=== PATIENT | male | born 1955 | race Caucasian/White ===

== ENCOUNTER 2020-02-26 20:00 | Inpatient (IN) | payer BC, OTHER ==
[~2020-02-26] VITALS: Ht 177.8 cm; Wt 105.0 kg
[~2020-02-26 20:00] MED LIST: heparin 1,000 units/ml 10ml inj ONE; papaverine 30 mg/ml 2ml inj. ONE
--- NOTE | 2020-02-26 20:10 | NUR ---
Xray at bedside for port cxr
[2020-02-26 20:29] LABS: BASOPHILS # (AUTO) 0.1 X10'3 (0-0.2); BASOPHILS % (AUTO) 0.5 % (0-1); EOSINOPHILS % (AUTO) 0.1 % (0-6); HEMATOCRIT 38.4 % (42.0-52.0); HEMOGLOBIN 12.7 g/dl (14.0-17.9); LYMPHOCYTES # (AUTO) 0.9 X10'3 (1.1-4.8); LYMPHOCYTES % (AUTO) 7.4 % (21-51); MEAN CORPUSCULAR HEMOGLOBIN 29.9 PG (27.0-31.0); MEAN CORPUSCULAR HGB CONC 33.1 g/dL (33.0-36.5); MEAN CORPUSCULAR VOLUME 90.3 FL (78-98); MEAN PLATELET VOLUME 10.2 FL (7.4-10.4); MONOCYTES # (AUTO) 0.7 X10'3 (0-0.9); MONOCYTES % (AUTO) 5.8 % (2-12); NEUTROPHILS % (AUTO) 86.2 % (42-75); PLATELET COUNT 248 X10'3 (140-440); RED BLOOD COUNT 4.26 X10'6 (4.70-6.10); RED CELL DISTRIBUTION WIDTH 14.1 % (11.5-14.5); WHITE BLOOD COUNT 11.6 X10'3 (4.5-11.0)
[2020-02-26 20:38] LABS: PARTIAL THROMBOPLASTIN TIME 37 SECONDS (22-32)
[2020-02-26 20:42] LABS: ALANINE AMINOTRANSFERASE 32 U/L (12-78); ALBUMIN 3.5 G/DL (3.4-5.0); ALBUMIN/GLOBULIN RATIO 0.9 (1.1-1.5); ALKALINE PHOSPHATASE 68 IU/L (46-116); ANION GAP 13 (8-16); ASPARTATE AMINO TRANSFERASE 21 U/L (10-37); BILIRUBIN,TOTAL 0.6 MG/DL (0.1-1.0); BLOOD UREA NITROGEN 43 MG/DL (7-18); BUN/CREATININE RATIO 30.9 (5.4-32.0); CHLORIDE 106 MMOL/L (99-107); CREATININE 1.39 MG/DL (0.60-1.10); GLUCOSE 261 MG/DL (70-104); POTASSIUM 4.7 MMOL/L (3.5-5.1); SODIUM 143 MMOL/L (135-145); TOTAL CARBON DIOXIDE 24.4 MMOL/L (24-32); TOTAL PROTEIN 7.6 G/DL (6.4-8.2); eGFR 51 ML/MIN
[2020-02-26 20:51] LABS: MAGNESIUM 2.1 MG/DL (1.5-2.4)
[2020-02-26] MEDS: heparin 25,000 UNIT/250ml bag 250 ML IV SCH (21:04)
--- NOTE | 2020-02-26 21:11 | NUR ---
Pt given urinal as requested.
--- NOTE | 2020-02-26 21:44 | NUR ---
Pt placed on hospital bed for comfort. Call light in reach, water and urinal at bedside. Lights dimmed.
[2020-02-26] MEDS ORDERED: furosemide 10 MG/1 ML 10ml inj IV ONE (21:55)
[2020-02-26] MEDS ORDERED: INSU100I29 SQ (22:04)
[2020-02-26] MEDS ORDERED: DAPA10TA PO (22:04)
[2020-02-26] MEDS ORDERED: ATOR20TA66 PO (22:05)
[2020-02-26] MEDS ORDERED: FENO145T38 PO (22:05)
[2020-02-26] MEDS ORDERED: METF500T PO (22:06)
[2020-02-26] MEDS ORDERED: LISI-600 PO (22:06)
[2020-02-26] MEDS ORDERED: ASPI-1265 PO (22:07)
[2020-02-26] MEDS ORDERED: ondansetron/PF 4mg/2ml inj IV PRN (22:25)
[2020-02-26] MEDS ORDERED: acetaminophen 325mg tablet PO PRN (22:25)
[2020-02-26] MEDS ORDERED: potassium Cl 20 mEq SR tablet PO PRN ×2 (22:25)
[2020-02-26] MEDS ORDERED: mag hydrox/Alum hydrox/simeth 30ml oral suspension PO PRN (22:25)
[2020-02-26] MEDS ORDERED: magnesium hydroxide 30ml (MOM) UD suspension PO PRN (22:25)
[2020-02-26] MEDS ORDERED: morphine 2 MG/ML inj. syringe IV PRN ×2 (22:25)
[2020-02-26] MEDS ORDERED: potassium CL 10mEq/100ml bag 100 ML IV PRN ×2 (22:25)
[2020-02-26] MEDS ORDERED: MESSAGE TO PHARMACY PO ONE (22:30)
[2020-02-26] MEDS ORDERED: dextrose 50%-water 50ml dispensing syringe IV PRN ×2 (22:30)
[2020-02-26] MEDS ORDERED: glucagon, human recombinant 1mg kit SUBCUT PRN (22:30)
[2020-02-26] MEDS ORDERED: dextrose ORAL solution 15 GM/59 ML bottle PO PRN ×2 (22:30)
[2020-02-26 22:58] LABS: HEMOGLOBIN A1C 8.7 % (4.5-6.2)
[2020-02-27 02:12] LABS: BASOPHILS # (AUTO) 0.1 X10'3 (0-0.2); BASOPHILS % (AUTO) 0.9 % (0-1); EOSINOPHILS % (AUTO) 0.1 % (0-6); HEMATOCRIT 35.8 % (42.0-52.0); LYMPHOCYTES # (AUTO) 1.6 X10'3 (1.1-4.8); LYMPHOCYTES % (AUTO) 13.5 % (21-51); MEAN CORPUSCULAR HEMOGLOBIN 30.5 PG (27.0-31.0); MEAN CORPUSCULAR HGB CONC 33.5 g/dL (33.0-36.5); MEAN PLATELET VOLUME 10.1 FL (7.4-10.4); MONOCYTES % (AUTO) 8.5 % (2-12); PLATELET COUNT 232 X10'3 (140-440); RED BLOOD COUNT 3.93 X10'6 (4.70-6.10); RED CELL DISTRIBUTION WIDTH 13.9 % (11.5-14.5); WHITE BLOOD COUNT 11.7 X10'3 (4.5-11.0)
[2020-02-27 02:23] LABS: ALANINE AMINOTRANSFERASE 30 U/L (12-78); ALBUMIN 3.3 G/DL (3.4-5.0); ALBUMIN/GLOBULIN RATIO 0.7 (1.1-1.5); ALKALINE PHOSPHATASE 62 IU/L (46-116); ANION GAP 10 (8-16); ASPARTATE AMINO TRANSFERASE 22 U/L (10-37); BILIRUBIN,TOTAL 0.6 MG/DL (0.1-1.0); BLOOD UREA NITROGEN 42 MG/DL (7-18); BUN/CREATININE RATIO 30.2 (5.4-32.0); CALCIUM 8.3 MG/DL (8.5-10.1); CHLORIDE 105 MMOL/L (99-107); CREATININE 1.39 MG/DL (0.60-1.10); GLUCOSE 232 MG/DL (70-104); SODIUM 140 MMOL/L (135-145); TOTAL CARBON DIOXIDE 25.5 MMOL/L (24-32); TOTAL PROTEIN 7.9 G/DL (6.4-8.2); eGFR 51 ML/MIN
[2020-02-27 02:26] LABS: CHOL/HDL RATIO 2.3 (0.00-4.99); CHOLESTEROL 101 MG/DL (0-200); HDL CHOLESTEROL 44 MG/DL (35-60); LDL CHOLESTEROL 40 MG/DL (50-100); TRIGLYCERIDES 135 MG/DL (20-135)
[2020-02-27] MEDS: K and/or MAG REPLACEMENT MC SCH ×2 (08:00→20:00)
[2020-02-27] MEDS: fenofibrate 145mg tablet PO SCH (08:53)
[2020-02-27] MEDS: atorvastatin 20mg tablet PO SCH (08:54)
[2020-02-27] MEDS: lisinopril 20mg tablet PO SCH (08:54)
[2020-02-27] MEDS: aspirin 81mg tab.chew PO SCH (08:55)
--- NOTE | 2020-02-27 13:14 | NUR ---
pt complaining of chest discomfort and pain will notify hospitalist and continue to monitor
--- NOTE | 2020-02-27 13:28 | NUR ---
ekg done and hospitalist paged for further treatment orders
[2020-02-27] MEDS: heparin 10,000 units/1 ML INJ IV PRN ×2 (15:27→22:35)
[2020-02-27] MEDS: heparin 25,000 UNIT/250ml bag 250 ML IV SCH ×2 (15:28→18:41)
[2020-02-27 15:30] VITALS: BP 105/62
[2020-02-27 18:00] VITALS: BP 107/66
--- NOTE | 2020-02-27 18:24 | NUR ---
Patient in room PCU 3016. I have received report from Tamy GLORIA and had the opportunity to ask questions and assume patient care.
--- NOTE | 2020-02-27 18:25 | NUR ---
Problems reprioritized. Patient report given, questions answered & plan of care reviewed with Otto RN & Noelle RN.
--- NOTE | 2020-02-27 19:30 | NUR ---
Unable to count carbs Pt received late tray, no slip available. Pt reports 75% consumption.
[2020-02-27 22:00] VITALS: BP 101/58
[2020-02-27] MEDS: insulin glargine (Lantus) pen - multi-dose SQ SCH (22:24)
[2020-02-27] MEDS: insulin Lispro (HumaLOG) vial - multi-dose SQ SCH (22:26)
[2020-02-28] VITALS (13 sets, daily range): BP systolic 63–103; BP diastolic 44–64
--- NOTE | 2020-02-28 02:49 | NUR ---
Pt does not want to answer Dart questions at this time, will try again later.
[2020-02-28 05:11] LABS: BASOPHILS # (AUTO) 0.1 X10'3 (0-0.2); BASOPHILS % (AUTO) 0.7 % (0-1); EOSINOPHILS # (AUTO) 0.1 X10'3 (0-0.9); EOSINOPHILS % (AUTO) 1.1 % (0-6); HEMATOCRIT 36.2 % (42.0-52.0); LYMPHOCYTES # (AUTO) 1.6 X10'3 (1.1-4.8); MEAN CORPUSCULAR HGB CONC 33.2 g/dL (33.0-36.5); MEAN CORPUSCULAR VOLUME 90.4 FL (78-98); MEAN PLATELET VOLUME 10.2 FL (7.4-10.4); MONOCYTES # (AUTO) 0.6 X10'3 (0-0.9); NEUTROPHILS # (AUTO) 5.5 X10'3 (1.8-7.7); NEUTROPHILS % (AUTO) 70.2 % (42-75); PLATELET COUNT 229 X10'3 (140-440); RED CELL DISTRIBUTION WIDTH 13.7 % (11.5-14.5); WHITE BLOOD COUNT 7.9 X10'3 (4.5-11.0)
[2020-02-28 05:24] LABS: ALANINE AMINOTRANSFERASE 24 U/L (12-78); ALBUMIN/GLOBULIN RATIO 0.8 (1.1-1.5); ALKALINE PHOSPHATASE 59 IU/L (46-116); ANION GAP 12 (8-16); ASPARTATE AMINO TRANSFERASE 13 U/L (10-37); BILIRUBIN,TOTAL 0.7 MG/DL (0.1-1.0); BLOOD UREA NITROGEN 37 MG/DL (7-18); BUN/CREATININE RATIO 36.3 (5.4-32.0); CALCIUM 8.7 MG/DL (8.5-10.1); CHLORIDE 102 MMOL/L (99-107); CREATININE 1.02 MG/DL (0.60-1.10); GLUCOSE 173 MG/DL (70-104); POTASSIUM 3.7 MMOL/L (3.5-5.1); SODIUM 139 MMOL/L (135-145); TOTAL CARBON DIOXIDE 25.5 MMOL/L (24-32); TOTAL PROTEIN 6.8 G/DL (6.4-8.2); eGFR 74 ML/MIN
[2020-02-28] MEDS: heparin 10,000 units/1 ML INJ IV PRN (05:31)
--- NOTE | 2020-02-28 06:28 | NUR ---
Problems reprioritized. Patient report given, questions answered & plan of care reviewed with Farnaz GLORIA.
--- NOTE | 2020-02-28 06:29 | NUR ---
I have reviewed Carly GLORIA charting and I agree.
--- NOTE | 2020-02-28 06:35 | NUR ---
Patient in room PCU 3019. I have received report from [facility] RN and had the opportunity to ask questions and assume patient care. PT AWAKE AND WATCHING TV. WHAT TO EXPECT TODAY IN [employer] DISCUSSED. POC EXPLAINED IN DETAIL. PT NO DISTRES. DENIES NEEDS. Addendum: 02/28/20 at 0857 by Sita Marquez RN Amended: Links added.
[2020-02-28] MEDS: lisinopril 20mg tablet PO SCH (07:37)
[2020-02-28] MEDS: atorvastatin 20mg tablet PO SCH (07:38)
[2020-02-28] MEDS: fenofibrate 145mg tablet PO SCH (07:38)
[2020-02-28] MEDS: K and/or MAG REPLACEMENT MC SCH ×2 (08:00→20:00)
[2020-02-28] MEDS: aspirin 81mg tab.chew PO SCH (08:00)
[2020-02-28] MEDS ORDERED: pneumococcal 23-VAL P-sac vacc 25 mcg/0.5ml vial IMVAC ONE (10:00)
[2020-02-28] MEDS ORDERED: FLU VACC QS2020-21(6MOS UP)/PF 60 MCG/0.5 ML SYRINGE IMVAC ONE (10:00)
[2020-02-28] MEDS ORDERED: LIDOcaine/PRILOcaine 5gm cream TP ONE (10:50)
[2020-02-28] MEDS ORDERED: fentaNYL/PF 50MCG/1 ML 2ML syringe ONE (10:51)
[2020-02-28] MEDS ORDERED: midazolam 2 mg/2 ml injection ONE ×2 (10:51→11:34)
[2020-02-28] MEDS ORDERED: LIDOcaine 1% (10mg/ml)w/preservative injection 20ml MDV ONE (10:52)
[2020-02-28] MEDS ORDERED: iohexol 350MG/ML 100ml bottle IV ONE (10:52)
--- NOTE | 2020-02-28 10:59 | NUR ---
PT DOWN TO DRUG PURCHASER.
[2020-02-28] MEDS ORDERED: nitroGLYCERIN-Tridil 50MG/D5W 250 ML IV ONE (11:24)
[2020-02-28] MEDS ORDERED: heparin 1,000unit/ml 10ml vial 10 ML ONE (11:24)
[2020-02-28] MEDS ORDERED: verapamil 2.5 mg/ml inj IV ONE (11:24)
--- NOTE | 2020-02-28 12:18 | NUR ---
PT BACK TO ROOM. RADIAL PRESSURE DEVICE IN PLACE. RIGHT HAND HAS NO SWELLING, NO BRUISING, NO REDNESS. PT TALKING ON PHONE. Addendum: 02/28/20 at 1239 by Sita Marquez RN Amended: Links added.
[2020-02-28] MEDS ORDERED: HYDROcodone/acetaminophen 10/325mg tab PO PRN (12:25)
[2020-02-28] MEDS ORDERED: normal saline 1000ml 1,000 ML IV SCH (12:25)
[2020-02-28] MEDS ORDERED: OXAZEpam 15mg capsule PO PRN (12:25)
[2020-02-28] MEDS ORDERED: nitroGLYCERIN 0.4mg SUBLingual tab SL PRN (12:25)
[2020-02-28] MEDS ORDERED: HYDROcodone/acetaminophen 5mg/325mg tablet PO PRN (12:25)
[2020-02-28] MEDS ORDERED: proCHLORperazine 10 MG/2 ml inj IV PRN (12:25)
[2020-02-28] MEDS ORDERED: ondansetron/PF 4mg/2ml inj IV PRN (12:25)
--- NOTE | 2020-02-28 13:08 | NUR ---
3ML OF AIR REMOVED FROM RADIAL PRESSURE DEVICE. NO BLEEDING. HAND PINK AND WARM WITHOUT PAIN.
--- NOTE | 2020-02-28 14:10 | NUR ---
RADIAL PRESSURE BAND REMOVED PER PROTOCOL. PT TALKING ON PHONE WITH FAMILY. HAND PINK AND WARM. NO BLEEDING FROM SITE. V/S WNL. PT NO DISTRESS. CALL LIGHT IN REACH.
--- NOTE | 2020-02-28 15:42 | NUR ---
DM education, Hgb a1c 8.7%; met at bedside and given written DM education handout with verbal review. Addendum: 02/28/20 at [address] Amended: Links added.
--- NOTE | 2020-02-28 18:12 | NUR ---
Problems reprioritized. Patient report given, questions answered & plan of care reviewed with CARLA RN. PT RELAXING ,EATING DINNER.PT DENIES NEEDS. CALL LIGHT IN REACH. RADIAL CATH SITE CLEAR.
--- NOTE | 2020-02-28 18:25 | NUR ---
Patient in room PCU 3019. I have received report from Sita GLORIA and had the opportunity to ask questions and assume patient care.
[2020-02-28] MEDS: insulin Lispro (HumaLOG) vial - multi-dose SQ SCH (19:28)
[2020-02-28] MEDS: metFORMIN 500mg tablet PO SCH (19:33)
[2020-02-28] MEDS: insulin glargine (Lantus) pen - multi-dose SQ SCH (21:40)
[2020-02-29 03:00] VITALS: BP 99/51
[2020-02-29 06:00] VITALS: BP 99/58
--- NOTE | 2020-02-29 06:15 | NUR ---
Patient in room PCU 3019. I have received report from Olman GLORIA and had the opportunity to ask questions and assume patient care.
--- NOTE | 2020-02-29 06:17 | NUR ---
Problems reprioritized. Patient report given, questions answered & plan of care reviewed with Edouard GLORIA.
[2020-02-29] MEDS: K and/or MAG REPLACEMENT MC SCH ×2 (08:00→20:00)
[2020-02-29] MEDS: DAPAGLIFLOZIN 10MG TABLET PO SCH (08:00)
[2020-02-29 08:04] LABS: ALANINE AMINOTRANSFERASE 25 U/L (12-78); ALBUMIN 2.9 G/DL (3.4-5.0); ALBUMIN/GLOBULIN RATIO 0.8 (1.1-1.5); ALKALINE PHOSPHATASE 57 IU/L (46-116); ANION GAP 6 (8-16); ASPARTATE AMINO TRANSFERASE 16 U/L (10-37); BILIRUBIN,TOTAL 0.6 MG/DL (0.1-1.0); BLOOD UREA NITROGEN 24 MG/DL (7-18); BUN/CREATININE RATIO 28.2 (5.4-32.0); CALCIUM 9.1 MG/DL (8.5-10.1); CHLORIDE 107 MMOL/L (99-107); CREATININE 0.85 MG/DL (0.60-1.10); GLUCOSE 130 MG/DL (70-104); SODIUM 138 MMOL/L (135-145); TOTAL CARBON DIOXIDE 25.1 MMOL/L (24-32); TOTAL PROTEIN 6.7 G/DL (6.4-8.2); eGFR > 90 ML/MIN
[2020-02-29] MEDS ORDERED: MESSAGE TO NURSING PO ONE ×5 (08:05→10:00)
[2020-02-29] MEDS ORDERED: MALTODEXTRIN/FRUCTOSE 0.68 KCAL/ML LIQUID 296ML BOTTLE PO ONE (08:05)
[2020-02-29 08:16] LABS: BASOPHILS % (AUTO) 0.5 % (0-1); EOSINOPHILS # (AUTO) 0.2 X10'3 (0-0.9); EOSINOPHILS % (AUTO) 3.8 % (0-6); HEMATOCRIT 36.3 % (42.0-52.0); HEMOGLOBIN 12.5 g/dl (14.0-17.9); LYMPHOCYTES # (AUTO) 1.2 X10'3 (1.1-4.8); LYMPHOCYTES % (AUTO) 18.2 % (21-51); MEAN CORPUSCULAR HEMOGLOBIN 31.1 PG (27.0-31.0); MEAN CORPUSCULAR HGB CONC 34.4 g/dL (33.0-36.5); MEAN CORPUSCULAR VOLUME 90.5 FL (78-98); MEAN PLATELET VOLUME 9.9 FL (7.4-10.4); MONOCYTES # (AUTO) 0.6 X10'3 (0-0.9); MONOCYTES % (AUTO) 8.7 % (2-12); NEUTROPHILS # (AUTO) 4.5 X10'3 (1.8-7.7); NEUTROPHILS % (AUTO) 68.8 % (42-75); PLATELET COUNT 231 X10'3 (140-440); RED BLOOD COUNT 4.01 X10'6 (4.70-6.10); RED CELL DISTRIBUTION WIDTH 13.5 % (11.5-14.5); WHITE BLOOD COUNT 6.5 X10'3 (4.5-11.0)
[2020-02-29] MEDS: aspirin 81mg tab.chew PO SCH (09:15)
[2020-02-29] MEDS: metFORMIN 500mg tablet PO SCH ×2 (09:15→17:34)
[2020-02-29] MEDS: fenofibrate 145mg tablet PO SCH (09:16)
[2020-02-29] MEDS: atorvastatin 20mg tablet PO SCH (09:16)
[2020-02-29] MEDS: lisinopril 20mg tablet PO SCH (09:18)
[2020-02-29 09:23] LABS: PARTIAL THROMBOPLASTIN TIME 26 SECONDS (22-32)
--- NOTE | 2020-02-29 12:00 | NUR ---
Problems reprioritized. Patient report given, questions answered & plan of care reviewed with Karmen LEDESMA.
[2020-02-29] MEDS: metoprolol tartrate 12.5mg (1/2 tablet) PO SCH ×2 (12:05→20:41)
--- NOTE | 2020-02-29 12:35 | NUR ---
Pt belongings gathered and sent with Pt. tele-box removed and returned to [employer]. Pt wheeled over to [facility]E unit room 314 by RN. Pt's vitals WNL.
[2020-02-29] MEDS: insulin Lispro (HumaLOG) vial - multi-dose SQ SCH ×2 (12:57→19:20)
--- NOTE | 2020-02-29 14:04 | NUR ---
vascular paged: [phone] dotty - CAROTIDS/ VEIN MAPPING ORDERED PRE-OP CABG
[2020-02-29 15:00] VITALS: BP 95/60
--- NOTE | 2020-02-29 17:05 | NUR ---
PAGER ID: [phone] MESSAGE: [phone]: LAUREEN RUGGIERO wrote in admit note to hold metformin, pt on insulin protocol, can we hold metformin? needs to be d/c'd before CABG anyways. ty Ila [id number]
[2020-02-29 18:00] VITALS: BP 105/61
--- NOTE | 2020-02-29 18:00 | NUR ---
Patient in room MED 314. I have received report from Karmen GLORIA and had the opportunity to ask questions and assume patient care.
[2020-02-29] MEDS ORDERED: mupirocin 2% ointment 22GM NS SCH (20:00)
[2020-02-29] MEDS: insulin glargine (Lantus) pen - multi-dose SQ SCH ×2 (21:40→22:13)
[2020-02-29 22:00] VITALS: BP 110/62
[2020-03-01] VITALS (8 sets, daily range): BP systolic 96–112; BP diastolic 46–68
--- NOTE | 2020-03-01 06:35 | NUR ---
REPORT GIVEN TO BERTHA GLORIA. PATIENT TRANSFERRED TO [facility] VIA W/C. ALL BELONGINGS WITH PATIENT ON D/C.
[2020-03-01] MEDS: metFORMIN 500mg tablet PO SCH ×2 (07:26→19:06)
[2020-03-01 07:29] LABS: BASOPHILS % (AUTO) 0.6 % (0-1); EOSINOPHILS # (AUTO) 0.4 X10'3 (0-0.9); EOSINOPHILS % (AUTO) 6.2 % (0-6); HEMATOCRIT 38.4 % (42.0-52.0); HEMOGLOBIN 13.2 g/dl (14.0-17.9); LYMPHOCYTES % (AUTO) 16.6 % (21-51); MEAN CORPUSCULAR HGB CONC 34.3 g/dL (33.0-36.5); MEAN CORPUSCULAR VOLUME 90.3 FL (78-98); MEAN PLATELET VOLUME 9.2 FL (7.4-10.4); MONOCYTES # (AUTO) 0.5 X10'3 (0-0.9); MONOCYTES % (AUTO) 7.6 % (2-12); NEUTROPHILS # (AUTO) 4.3 X10'3 (1.8-7.7); PLATELET COUNT 260 X10'3 (140-440); RED BLOOD COUNT 4.26 X10'6 (4.70-6.10); RED CELL DISTRIBUTION WIDTH 13.4 % (11.5-14.5); WHITE BLOOD COUNT 6.2 X10'3 (4.5-11.0)
[2020-03-01 07:37] LABS: CLARITY,URINE CLEAR (Clear); COLOR,URINE STRAW (Yellow); GLUCOSE, URINE NEGATIVE (Neg); KETONES,URINE NEGATIVE (Neg); LEUKOCYTE ESTERASE ,URINE NEGATIVE (Neg); NITRITES, URINE NEGATIVE (Neg); OCCULT BLOOD,URINE NEGATIVE (Neg); PROTEIN,URINE NEGATIVE (Neg); UROBILINOGEN,URINE 0.2 E.U/dL (0.2-1.0)
[2020-03-01 07:38] LABS: UA COLLECTION TYPE NON-SPECIFIED
[2020-03-01 07:46] LABS: ALANINE AMINOTRANSFERASE 34 U/L (12-78); ALBUMIN 3.2 G/DL (3.4-5.0); ALBUMIN/GLOBULIN RATIO 0.8 (1.1-1.5); ALKALINE PHOSPHATASE 73 IU/L (46-116); ANION GAP 8 (8-16); ASPARTATE AMINO TRANSFERASE 19 U/L (10-37); BILIRUBIN,TOTAL 0.7 MG/DL (0.1-1.0); BLOOD UREA NITROGEN 20 MG/DL (7-18); BUN/CREATININE RATIO 21.1 (5.4-32.0); CALCIUM 8.9 MG/DL (8.5-10.1); CHLORIDE 105 MMOL/L (99-107); CREATININE 0.95 MG/DL (0.60-1.10); GLUCOSE 144 MG/DL (70-104); POTASSIUM 4.1 MMOL/L (3.5-5.1); SODIUM 139 MMOL/L (135-145); TOTAL CARBON DIOXIDE 26.1 MMOL/L (24-32); TOTAL PROTEIN 7.3 G/DL (6.4-8.2); eGFR 80 ML/MIN
[2020-03-01] MEDS: K and/or MAG REPLACEMENT MC SCH ×2 (08:00→20:00)
[2020-03-01] MEDS: DAPAGLIFLOZIN 10MG TABLET PO SCH (08:00)
[2020-03-01] MEDS: metoprolol tartrate 12.5mg (1/2 tablet) PO SCH ×2 (10:01→19:11)
[2020-03-01] MEDS: atorvastatin 20mg tablet PO SCH (10:02)
[2020-03-01] MEDS: fenofibrate 145mg tablet PO SCH (10:02)
[2020-03-01] MEDS: aspirin 81mg tab.chew PO SCH (10:02)
[2020-03-01] MEDS: lisinopril 20mg tablet PO SCH (10:02)
[2020-03-01 11:01] LABS: ABG BASE EXCESS -1.8 mmol/L (-2.0-2.0); ABG HCO3 21.8 mmol/L (22.0-26.0); ABG PCO2 (T) 33.5 mmHg (35.0-48.0); ABG PO2 (T) 65.4 mmHg (75.0-100.0); ALLEN'S TEST POSITIVE; FCOHb 0.7 % (0.0-3.9); FMetHb 0.3 % (0.0-1.5); FO2Hb 91.1 % (94-97); TOTAL HEMOGLOBIN 12.9 G/dl (14.0-18.0)
[2020-03-01] MEDS: insulin Lispro (HumaLOG) vial - multi-dose SQ SCH ×2 (14:00→19:00)
--- NOTE | 2020-03-01 18:00 | NUR ---
Patient in room PCU 3019. I have received report from Martine GLORIA and had the opportunity to ask questions and assume patient care with Lupis GLORIA.
--- NOTE | 2020-03-01 18:44 | NUR ---
Patient in room PCU 3019. I have received report from JUANI Farley and had the opportunity to ask questions and assume patient care.
[2020-03-02] VITALS (7 sets, daily range): BP systolic 40–150; BP diastolic 40–105
--- NOTE | 2020-03-02 06:18 | NUR ---
Problems reprioritized. Patient report given, questions answered & plan of care reviewed with JUANI Le.
[2020-03-02 06:20] LABS: BASOPHILS % (AUTO) 0.6 % (0-1); EOSINOPHILS # (AUTO) 0.5 X10'3 (0-0.9); EOSINOPHILS % (AUTO) 7.7 % (0-6); HEMATOCRIT 36.1 % (42.0-52.0); HEMOGLOBIN 12.3 g/dl (14.0-17.9); LYMPHOCYTES # (AUTO) 1.3 X10'3 (1.1-4.8); LYMPHOCYTES % (AUTO) 21.9 % (21-51); MEAN CORPUSCULAR HEMOGLOBIN 30.2 PG (27.0-31.0); MEAN CORPUSCULAR VOLUME 88.8 FL (78-98); MEAN PLATELET VOLUME 9.7 FL (7.4-10.4); MONOCYTES # (AUTO) 0.6 X10'3 (0-0.9); MONOCYTES % (AUTO) 10.1 % (2-12); NEUTROPHILS # (AUTO) 3.5 X10'3 (1.8-7.7); NEUTROPHILS % (AUTO) 59.7 % (42-75); PLATELET COUNT 252 X10'3 (140-440); RED BLOOD COUNT 4.06 X10'6 (4.70-6.10); RED CELL DISTRIBUTION WIDTH 13.5 % (11.5-14.5); WHITE BLOOD COUNT 5.9 X10'3 (4.5-11.0)
--- NOTE | 2020-03-02 06:20 | NUR ---
Orientee documentation: I have reviewed and agree with all interventions, medications administered, assessments performed, and documented by Lupis GLORIA.
--- NOTE | 2020-03-02 06:30 | NUR ---
Patient in room PCU 3019. I have received report from Shaista GLORIA and had the opportunity to ask questions and assume patient care. Patient awake in bed and resting. Offers no complaints. All immediate needs met at this time.
[2020-03-02 06:42] LABS: ALANINE AMINOTRANSFERASE 33 U/L (12-78); ALBUMIN 2.8 G/DL (3.4-5.0); ALBUMIN/GLOBULIN RATIO 0.8 (1.1-1.5); ALKALINE PHOSPHATASE 84 IU/L (46-116); ANION GAP 8 (8-16); ASPARTATE AMINO TRANSFERASE 16 U/L (10-37); BILIRUBIN,TOTAL 0.4 MG/DL (0.1-1.0); BLOOD UREA NITROGEN 21 MG/DL (7-18); BUN/CREATININE RATIO 22.6 (5.4-32.0); CALCIUM 8.9 MG/DL (8.5-10.1); CHLORIDE 107 MMOL/L (99-107); CREATININE 0.93 MG/DL (0.60-1.10); GLUCOSE 206 MG/DL (70-104); POTASSIUM 4.5 MMOL/L (3.5-5.1); SODIUM 139 MMOL/L (135-145); TOTAL CARBON DIOXIDE 24.3 MMOL/L (24-32); TOTAL PROTEIN 6.5 G/DL (6.4-8.2); eGFR 82 ML/MIN
[2020-03-02] MEDS: K and/or MAG REPLACEMENT MC SCH ×2 (08:00→20:00)
[2020-03-02] MEDS: metoprolol tartrate 12.5mg (1/2 tablet) PO SCH ×2 (08:00→21:11)
[2020-03-02] MEDS: lisinopril 20mg tablet PO SCH (08:00)
[2020-03-02] MEDS ORDERED: normal saline 1000ml 1,000 ML IV ONE (08:30)
[2020-03-02] MEDS: aspirin 81mg tab.chew PO SCH (08:59)
[2020-03-02] MEDS: fenofibrate 145mg tablet PO SCH (08:59)
[2020-03-02] MEDS: atorvastatin 20mg tablet PO SCH (08:59)
[2020-03-02] MEDS: insulin Lispro (HumaLOG) vial - multi-dose SQ SCH ×4 (09:03→21:15)
[2020-03-02] MEDS: normal saline 1000ml 1,000 ML IV SCH ×2 (09:30→15:51)
--- NOTE | 2020-03-02 18:26 | NUR ---
Patient in room PCU 3019. I have received report from JUANI Le and had the opportunity to ask questions and assume patient care.
--- NOTE | 2020-03-02 18:30 | NUR ---
Patient in room PCU 3019. I have received report from Mimi GLORIA and had the opportunity to ask questions and assume patient care with Lupis GLORIA.
[2020-03-02] MEDS: insulin glargine (Lantus) pen - multi-dose SQ SCH (21:12)
[2020-03-03 02:00] VITALS: BP 103/53
--- NOTE | 2020-03-03 06:03 | NUR ---
Orientee documentation: I have reviewed and agree with all interventions, medications given, assessments performed and documented by Lupis GLORIA.
--- NOTE | 2020-03-03 06:14 | NUR ---
Problems reprioritized. Patient report given, questions answered & plan of care reviewed with JUANI Le.
--- NOTE | 2020-03-03 06:30 | NUR ---
Patient in room PCU 3019. I have received report from Shaista/JUANI Baugh and had the opportunity to ask questions and assume patient care. Patient asleep in bed and resting comfortably. All immediate needs met at this time.
[2020-03-03 07:00] VITALS: BP 96/58
[2020-03-03] MEDS: K and/or MAG REPLACEMENT MC SCH ×2 (08:00→20:00)
[2020-03-03] MEDS: atorvastatin 20mg tablet PO SCH (08:23)
[2020-03-03] MEDS: fenofibrate 145mg tablet PO SCH (08:23)
[2020-03-03] MEDS: aspirin 81mg tab.chew PO SCH (08:23)
[2020-03-03] MEDS: metoprolol tartrate 12.5mg (1/2 tablet) PO SCH ×2 (08:26→20:45)
[2020-03-03] MEDS: lisinopril 20mg tablet PO SCH (08:26)
[2020-03-03] MEDS: insulin Lispro (HumaLOG) vial - multi-dose SQ SCH ×3 (08:29→18:45)
[2020-03-03] MEDS: normal saline 1000ml 1,000 ML IV SCH ×2 (09:30→22:00)
[2020-03-03] MEDS ORDERED: dextrose 50%-water 50ml dispensing syringe IV PRN (09:50)
[2020-03-03] MEDS ORDERED: MALTODEXTRIN/FRUCTOSE 0.68 KCAL/ML LIQUID 296ML BOTTLE PO ONE (09:50)
[2020-03-03] MEDS ORDERED: gabapentin 400mg capsule PO ONE (09:50)
[2020-03-03] MEDS ORDERED: vancomycin/NS 1 GM ADD-VANTAGE 250 ML IV ONE (09:50)
[2020-03-03] MEDS ORDERED: insulin glargine (Lantus) pen - multi-dose SQ PRN (09:50)
[2020-03-03] MEDS ORDERED: cefazolin/dext.iso 2gm/50ml 50 ML IV ONE (09:50)
[2020-03-03 11:00] VITALS: BP 93/58
[2020-03-03] MEDS ORDERED: ringers solution, lacted 1,000 ML IV ONE (11:15)
[2020-03-03 12:30] LABS: BASOPHILS % (AUTO) 0.8 % (0-1); EOSINOPHILS # (AUTO) 0.3 X10'3 (0-0.9); EOSINOPHILS % (AUTO) 5.6 % (0-6); HEMATOCRIT 38.7 % (42.0-52.0); HEMOGLOBIN 13.1 g/dl (14.0-17.9); LYMPHOCYTES # (AUTO) 1.1 X10'3 (1.1-4.8); LYMPHOCYTES % (AUTO) 18.4 % (21-51); MEAN CORPUSCULAR HEMOGLOBIN 30.1 PG (27.0-31.0); MEAN CORPUSCULAR HGB CONC 33.7 g/dL (33.0-36.5); MEAN CORPUSCULAR VOLUME 89.4 FL (78-98); MEAN PLATELET VOLUME 9.1 FL (7.4-10.4); MONOCYTES # (AUTO) 0.5 X10'3 (0-0.9); MONOCYTES % (AUTO) 9.3 % (2-12); NEUTROPHILS # (AUTO) 3.8 X10'3 (1.8-7.7); NEUTROPHILS % (AUTO) 65.9 % (42-75); PLATELET COUNT 307 X10'3 (140-440); RED BLOOD COUNT 4.33 X10'6 (4.70-6.10); RED CELL DISTRIBUTION WIDTH 13.5 % (11.5-14.5); WHITE BLOOD COUNT 5.8 X10'3 (4.5-11.0)
[2020-03-03 12:46] LABS: ALANINE AMINOTRANSFERASE 36 U/L (12-78); ALBUMIN 3.3 G/DL (3.4-5.0); ALBUMIN/GLOBULIN RATIO 0.8 (1.1-1.5); ALKALINE PHOSPHATASE 74 IU/L (46-116); ANION GAP 9 (8-16); ASPARTATE AMINO TRANSFERASE 20 U/L (10-37); BILIRUBIN,TOTAL 0.5 MG/DL (0.1-1.0); BLOOD UREA NITROGEN 19 MG/DL (7-18); BUN/CREATININE RATIO 21.1 (5.4-32.0); CALCIUM 8.6 MG/DL (8.5-10.1); CHLORIDE 104 MMOL/L (99-107); GLUCOSE 211 MG/DL (70-104); POTASSIUM 4.2 MMOL/L (3.5-5.1); SODIUM 139 MMOL/L (135-145); TOTAL CARBON DIOXIDE 26.3 MMOL/L (24-32); TOTAL PROTEIN 7.3 G/DL (6.4-8.2); eGFR 85 ML/MIN
--- NOTE | 2020-03-03 14:43 | NUR ---
Initial: Pt admit s/p cardiac cath DX NSTEMI, LEXX, hypotension w/ hx T2DM A1C 8.7 per EMR. PO fluctuating ~50-75% heart healthy diet up to 100% at times as well past 5 days. Glu 211 not on carb controlled diet w/ hx DM; DEVEN d/w RN regarding carb controlled diet addition if MD agreeable for improved Glu control. Pending CABG tomorrow AM per PA note. LBM 02/28. Will continue to monitor for additional protein needs post-op. Rec: 1. advance diet as medically indicated to carb controlled/heart healthy 2. monitor for ONS needs; pending CABG 3. routine bowel care 4. weekly wts 5. IF CABG; CABG ed once stable prior to discharge as medically indicated Addendum: 03/03/[address] Amended: Links added.
[2020-03-03 17:00] VITALS: BP 89/47
[2020-03-03 18:00] VITALS: BP 97/58
--- NOTE | 2020-03-03 18:32 | NUR ---
Problems reprioritized. Patient report given, questions answered & plan of care reviewed with JUANI Hirsch. Patient stable at transfer of care.
[2020-03-03] MEDS: insulin glargine (Lantus) pen - multi-dose SQ SCH (21:36)
[2020-03-03 22:00] VITALS: BP 96/57
[2020-03-04] VITALS (17 sets, daily range): BP systolic 100–121; BP diastolic 48–73
[2020-03-04] MEDS ORDERED: bacitracin 15gm ointment TP SCH (05:10)
[2020-03-04] MEDS ORDERED: mupirocin 2% nasal ointment 1gm UD NS SCH (05:10)
[2020-03-04] MEDS ORDERED: ceFAZolin 1000mg inj ONE ×2 (05:14→10:47)
[2020-03-04] MEDS ORDERED: cefazolin/dext.iso 2gm/50ml 50 ML IV ONE (05:30)
[2020-03-04] MEDS ORDERED: famotidine/PF 10 mg/ml inj IV ONE (06:00)
[2020-03-04] MEDS ORDERED: LORazepam 2 mg/ml vial IV ONE (06:00)
--- NOTE | 2020-03-04 06:00 | NUR ---
Patient in room PCU 3019. I have received report from Joycelyn GLORIA and had the opportunity to ask questions and assume patient care.
[2020-03-04 06:07] LABS: BASOPHILS % (AUTO) 0.6 % (0-1); EOSINOPHILS # (AUTO) 0.3 X10'3 (0-0.9); EOSINOPHILS % (AUTO) 4.1 % (0-6); HEMATOCRIT 38.7 % (42.0-52.0); HEMOGLOBIN 12.8 g/dl (14.0-17.9); LYMPHOCYTES # (AUTO) 1.2 X10'3 (1.1-4.8); LYMPHOCYTES % (AUTO) 17.3 % (21-51); MEAN CORPUSCULAR HEMOGLOBIN 29.9 PG (27.0-31.0); MEAN CORPUSCULAR HGB CONC 33.1 g/dL (33.0-36.5); MEAN CORPUSCULAR VOLUME 90.2 FL (78-98); MEAN PLATELET VOLUME 9.5 FL (7.4-10.4); MONOCYTES # (AUTO) 0.6 X10'3 (0-0.9); MONOCYTES % (AUTO) 8.1 % (2-12); NEUTROPHILS % (AUTO) 69.9 % (42-75); PLATELET COUNT 293 X10'3 (140-440); RED BLOOD COUNT 4.29 X10'6 (4.70-6.10); RED CELL DISTRIBUTION WIDTH 13.7 % (11.5-14.5); WHITE BLOOD COUNT 7.1 X10'3 (4.5-11.0)
--- NOTE | 2020-03-04 06:17 | NUR ---
Problems reprioritized. Patient report given, questions answered & plan of care reviewed with JUANI Nunn.
[2020-03-04 06:25] LABS: ALANINE AMINOTRANSFERASE 34 U/L (12-78); ALBUMIN 3.2 G/DL (3.4-5.0); ALBUMIN/GLOBULIN RATIO 0.9 (1.1-1.5); ALKALINE PHOSPHATASE 63 IU/L (46-116); ANION GAP 11 (8-16); ASPARTATE AMINO TRANSFERASE 16 U/L (10-37); BILIRUBIN,TOTAL 0.5 MG/DL (0.1-1.0); BLOOD UREA NITROGEN 19 MG/DL (7-18); CALCIUM 8.7 MG/DL (8.5-10.1); CHLORIDE 107 MMOL/L (99-107); CREATININE 0.95 MG/DL (0.60-1.10); GLUCOSE 176 MG/DL (70-104); POTASSIUM 4.2 MMOL/L (3.5-5.1); SODIUM 142 MMOL/L (135-145); TOTAL CARBON DIOXIDE 24.5 MMOL/L (24-32); TOTAL PROTEIN 6.9 G/DL (6.4-8.2); eGFR 80 ML/MIN
[2020-03-04] MEDS ORDERED: SUFENTANIL CITRATE 50 MCG/ML 2ml ampule IV ONE (06:34)
[2020-03-04] MEDS ORDERED: MIDAZolam 1mg/ml 10ml vial ONE (06:34)
[2020-03-04] MEDS ORDERED: isoflurane 100ml inhalation liquid IH ONE (06:50)
[2020-03-04] MEDS ORDERED: ondansetron/PF 4mg/2ml inj ONE ×2 (06:50→11:06)
[2020-03-04] MEDS ORDERED: nitroGLYCERIN in D5W 50mg/250ml (Tridil) infusion IV ONE (06:50)
[2020-03-04] MEDS ORDERED: albumin (Human) 5% 250ml BOTTLE IV ONE (06:50)
[2020-03-04] MEDS ORDERED: NORepinephrine 8 MG in NS 250 ML BAG (32 mcg/ml) IV ONE (06:50)
[2020-03-04] MEDS ORDERED: DOPamine/D5W 400mg/250ml bag IV ONE (06:50)
[2020-03-04] MEDS ORDERED: aminocaproic acid 250 MG/1 ML inj. ONE ×2 (06:50→08:00)
[2020-03-04] MEDS ORDERED: INSULIN R 100 UNIT in NS 100ML (1 UNIT/1 ML) BAG IV ONE (06:50)
[2020-03-04] MEDS ORDERED: protamine sulf. 10mg/ml inj. IV ONE (06:50)
[2020-03-04] MEDS ORDERED: papaverine 30 mg/ml 2ml inj. IA ONE (07:00)
[2020-03-04] MEDS ORDERED: heparin 10,000 units/1 ML INJ IR ONE (07:00)
[2020-03-04] MEDS ORDERED: LIDOcaine 2% 5ml jelly ONE (07:06)
[2020-03-04] MEDS ORDERED: phenylephrine 10mg/ml inj. ONE ×2 (07:49→08:00)
[2020-03-04] MEDS ORDERED: 0.9 % SODIUM CHLORIDE 10 ML VIAL ONE (07:49)
[2020-03-04] MEDS ORDERED: rocuronium 10mg/ml inj IV ONE ×2 (07:49→08:42)
[2020-03-04] MEDS ORDERED: propofol inj 20 ML IV ONE (07:49)
[2020-03-04] MEDS ORDERED: LIDOcaine 2% (20mg/ml) 5ml vial ONE (07:49)
[2020-03-04] MEDS ORDERED: heparin 1,000 units/ml 10ml inj ONE (08:00)
[2020-03-04] MEDS ORDERED: potassium Cl 2 mEq/ml inj IV ONE (08:00)
[2020-03-04] MEDS ORDERED: sodium bicarbonate (8.4%) 1 mEq/ml syringe ONE (08:00)
[2020-03-04] MEDS ORDERED: MAGNESIUM SULFATE 4 MEQ/ML (5gm/10ml) injection ONE (08:00)
[2020-03-04] MEDS ORDERED: calcium chloride 100 MG/1 ML inj IV ONE (08:00)
[2020-03-04] MEDS ORDERED: methylPREDNISolone sod succ 1000mg vial ONE (08:00)
[2020-03-04] MEDS ORDERED: albumin (human) 25% 100 ML IV solution IV ONE (08:00)
[2020-03-04] MEDS ORDERED: heparin 10,000 units/1 ML INJ ONE (08:00)
[2020-03-04] MEDS ORDERED: LIDOcaine 2% (20 mg/ml) 5ml cardiac syringe ONE (08:00)
[2020-03-04] MEDS ORDERED: pancuronium br 1mg/ml inj IV ONE (08:42)
[2020-03-04] MEDS ORDERED: midazolam 2 mg/2 ml injection IV ONE (09:15)
[2020-03-04] MEDS ORDERED: fentaNYL/PF 50MCG/1 ML 2ML syringe IV PRN (09:15)
[2020-03-04 09:25] LABS: ABG BASE EXCESS 0.1 mmol/L (-2.0-2.0); ABG HCO3 24.4 mmol/L (22.0-26.0); ABG OXYGEN SATURATION 97.2 % (94-97); ABG PO2 215.7 mmHg (75.0-100.0); CL (ABG) 105 mmol/L (98-110); FCOHb 0.2 % (0.0-3.9); FMetHb 0.2 % (0.0-1.5); FO2Hb 96.8 % (94-97); GLUCOSE (ABG) 226 mg/dl (70-140); IONIZED CA (ABG) 1.05 mmol/L (1.10-1.43); K (ABG) 5.3 mmol/L (3.5-5.0)
[2020-03-04 09:55] LABS: ABG BASE EXCESS VENOUS -0.2 mmol/L; ABG HCO3 VENOUS 25.2 mmol/L; ABG PCO2 VENOUS 44.6 mmHg; ABG PO2 VENOUS 43.9 mmHg; CL (ABG) 107 mmol/L (98-110); FCOHb VENOUS 1.2 %; FHHb VENOUS 22.2 %; FMetHb VENOUS 0.3 %; FO2Hb VENOUS 76.3 %; GLUCOSE (ABG) 240 mg/dl (70-140); IONIZED CA (ABG) 1.07 mmol/L (1.10-1.43); K (ABG) 5.5 mmol/L (3.5-5.0); TOTAL HEMOGLOBIN 8.8 G/dl (14.0-18.0)
[2020-03-04 10:15] LABS: ABG BASE EXCESS 0.5 mmol/L (-2.0-2.0); ABG HCO3 25.4 mmol/L (22.0-26.0); ABG OXYGEN SATURATION 97.5 % (94-97); ABG PCO2 42.2 mmHg (35.0-48.0); ABG PO2 401.4 mmHg (75.0-100.0); CL (ABG) 105 mmol/L (98-110); FCOHb 0.3 % (0.0-3.9); FMetHb 0.2 % (0.0-1.5); GLUCOSE (ABG) 226 mg/dl (70-140); IONIZED CA (ABG) 1.38 mmol/L (1.10-1.43); K (ABG) 5.6 mmol/L (3.5-5.0); TOTAL HEMOGLOBIN 8.2 G/dl (14.0-18.0)
[2020-03-04 10:41] LABS: ABG BASE EXCESS -2.1 mmol/L (-2.0-2.0); ABG HCO3 22.8 mmol/L (22.0-26.0); ABG OXYGEN SATURATION 97.1 % (94-97); ABG PCO2 39.5 mmHg (35.0-48.0); ABG PO2 218.4 mmHg (75.0-100.0); CL (ABG) 108 mmol/L (98-110); FCOHb 0.2 % (0.0-3.9); FMetHb 0.2 % (0.0-1.5); FO2Hb 96.7 % (94-97); GLUCOSE (ABG) 218 mg/dl (70-140); K (ABG) 4.6 mmol/L (3.5-5.0); TOTAL HEMOGLOBIN 8.6 G/dl (14.0-18.0)
[2020-03-04] MEDS ORDERED: dexamethasone sod phosphate 4mg/ml inj. ONE (11:06)
[2020-03-04] MEDS ORDERED: sodium phosphate inj. 30 MMOL in dextrose 5%-water 250 ML IV PRN (11:45)
[2020-03-04] MEDS ORDERED: mineral oil 133ml enema RC PRN (11:45)
[2020-03-04] MEDS ORDERED: normal saline 250ml IV soln 250 ML IV PRN (11:45)
[2020-03-04] MEDS ORDERED: niCARDipine-NS 40mg/200ml IVPB 200 ML IV PRN (11:45)
[2020-03-04] MEDS ORDERED: magnesium 4gm in 100ml NS 100 ML IV PRN (11:45)
[2020-03-04] MEDS ORDERED: insulin glargine (Lantus) pen - multi-dose SQ PRN (11:45)
[2020-03-04] MEDS ORDERED: dextrose 50%-water 50ml dispensing syringe IV PRN (11:45)
[2020-03-04] MEDS ORDERED: DOPamine 400mg/D5W 250ml 250 ML IV PRN (11:45)
[2020-03-04] MEDS ORDERED: HYDROcodone/acetaminophen 10/325mg tab PO PRN (11:45)
[2020-03-04] MEDS ORDERED: magnesium citrate 296ml oral solution PO PRN (11:45)
[2020-03-04] MEDS ORDERED: magnesium hydroxide 30ml (MOM) UD suspension PO PRN (11:45)
[2020-03-04] MEDS ORDERED: potassium Cl 20 mEq SR tablet PO PRN (11:45)
[2020-03-04] MEDS ORDERED: nitroGLYCERIN-Tridil 50MG/D5W 250 ML IV PRN (11:45)
[2020-03-04] MEDS ORDERED: pantoprazole 40 MG vial IV ONE (11:45)
[2020-03-04] MEDS ORDERED: sodium chloride 0.45% 1,000 ML IV SCH (11:45)
[2020-03-04] MEDS ORDERED: Insulin Reg/NS 100units/100mL 100 ML IV SCH (11:45)
[2020-03-04] MEDS ORDERED: acetaminophen 325mg tablet PO PRN ×2 (11:45)
[2020-03-04] MEDS ORDERED: sodium phosphate inj. 15 MMOL in dextrose 5%-water 250 ML IV PRN (11:45)
[2020-03-04] MEDS ORDERED: ondansetron/PF 4mg/2ml inj IV PRN (11:45)
[2020-03-04] MEDS ORDERED: bisacodyl 10mg suppository rectal RC PRN (11:45)
[2020-03-04] MEDS ORDERED: Neutra Phos packet PO PRN (11:45)
[2020-03-04] MEDS ORDERED: metoclopramide 5 mg/ml inj IV PRN (11:45)
[2020-03-04] MEDS: NORepinephrine 8mg/ 250ml NS 250 ML IV SCH (11:50)
[2020-03-04 12:10] LABS: ABG BASE EXCESS -2.9 mmol/L (-2.0-2.0); ABG HCO3 24.1 mmol/L (22.0-26.0); ABG OXYGEN SATURATION 96.6 % (94-97); ABG PCO2 (T) 49.2 mmHg (35.0-48.0); ABG PO2 (T) 128.6 mmHg (75.0-100.0); FCOHb 0.3 % (0.0-3.9); FMetHb 0.3 % (0.0-1.5); PATIENT TEMPERATURE 36.1; PEEP 5 cm H2O; RESPIRATORY RATE 12 b/min; TIDAL VOLUME 634 mL; TOTAL HEMOGLOBIN 11.8 G/dl (14.0-18.0)
--- NOTE | 2020-03-04 12:24 | NUR ---
CABG Consult: Pt s/p CABGx4 today per EMR; would benefit from CABG ed once stable post-op as medically indicated. Addendum: 03/04/[address] Amended: Links added.
[2020-03-04 12:30] LABS: ACTIVATED CLOTTING TIME 137 SEC (101-148)
[2020-03-04] MEDS: albumin (Human) 5% 250ml 250 ML IV PRN ×3 (13:15→16:00)
[2020-03-04 13:25] LABS: PARTIAL THROMBOPLASTIN TIME 38 SECONDS (22-32)
[2020-03-04 13:27] LABS: ALANINE AMINOTRANSFERASE 31 U/L (12-78); ALBUMIN 2.9 G/DL (3.4-5.0); ALBUMIN/GLOBULIN RATIO 1.1 (1.1-1.5); ALKALINE PHOSPHATASE 48 IU/L (46-116); ANION GAP 11 (8-16); ASPARTATE AMINO TRANSFERASE 36 U/L (10-37); BILIRUBIN,TOTAL 0.4 MG/DL (0.1-1.0); BLOOD UREA NITROGEN 16 MG/DL (7-18); BUN/CREATININE RATIO 15.7 (5.4-32.0); CALCIUM 8.2 MG/DL (8.5-10.1); CHLORIDE 111 MMOL/L (99-107); CREATININE 1.02 MG/DL (0.60-1.10); GLUCOSE 141 MG/DL (70-104); MAGNESIUM 2.3 MG/DL (1.5-2.4); PHOSPHORUS 2.2 MG/DL (2.3-4.5); POTASSIUM 3.7 MMOL/L (3.5-5.1); SODIUM 147 MMOL/L (135-145); TOTAL CARBON DIOXIDE 24.6 MMOL/L (24-32); TOTAL PROTEIN 5.5 G/DL (6.4-8.2); eGFR 74 ML/MIN
[2020-03-04 13:33] LABS: BASOPHILS % (AUTO) 0.2 % (0-1); EOSINOPHILS % (AUTO) 0.3 % (0-6); HEMATOCRIT 35.1 % (42.0-52.0); HEMOGLOBIN 11.7 g/dl (14.0-17.9); LYMPHOCYTES # (AUTO) 0.5 X10'3 (1.1-4.8); LYMPHOCYTES % (AUTO) 4.2 % (21-51); MEAN CORPUSCULAR HEMOGLOBIN 29.9 PG (27.0-31.0); MEAN CORPUSCULAR HGB CONC 33.2 g/dL (33.0-36.5); MEAN CORPUSCULAR VOLUME 90.1 FL (78-98); MEAN PLATELET VOLUME 9.8 FL (7.4-10.4); MONOCYTES # (AUTO) 0.4 X10'3 (0-0.9); MONOCYTES % (AUTO) 3.2 % (2-12); NEUTROPHILS # (AUTO) 10.2 X10'3 (1.8-7.7); NEUTROPHILS % (AUTO) 92.1 % (42-75); PLATELET COUNT 207 X10'3 (140-440); RED CELL DISTRIBUTION WIDTH 13.4 % (11.5-14.5); WHITE BLOOD COUNT 11.1 X10'3 (4.5-11.0)
[2020-03-04] MEDS: morphine 4 MG/ML inj SYRINge IV PRN ×4 (13:54→23:16)
[2020-03-04] MEDS: gabapentin 300mg capsule PO SCH ×2 (14:26→21:00)
[2020-03-04] MEDS: magnesium 2GM in 50ml NS 50 ML IV PRN (14:27)
[2020-03-04] MEDS: potassium Cl 20mEq/100mL bag 100 ML IV PRN ×3 (14:28→16:18)
--- NOTE | 2020-03-04 15:57 | NUR ---
Pt dependently ventricularly paced with occasional atrial pacing Addendum: 03/04/20 at 1558 by Tatiana De Paz RN Amended: Links added.
[2020-03-04] MEDS: Insulin Reg/NS 100units/100mL 100 ML IV SCH ×2 (16:12→19:10)
[2020-03-04] MEDS: ceFAZolin/D5W- 1GM premix 50 ML IV SCH ×2 (16:21→23:55)
[2020-03-04 18:06] LABS: ABG BASE EXCESS -4.2 mmol/L (-2.0-2.0); ABG HCO3 20.9 mmol/L (22.0-26.0); ABG OXYGEN SATURATION 91.2 % (94-97); ABG PCO2 (T) 38.5 mmHg (35.0-48.0); ABG PO2 (T) 69.7 mmHg (75.0-100.0); FCOHb 0.3 % (0.0-3.9); FMetHb 0.3 % (0.0-1.5); FO2Hb 90.7 % (94-97); PATIENT TEMPERATURE 37.1; PEEP 5 cm H2O; TIDAL VOLUME 668 mL; TOTAL HEMOGLOBIN 10.8 G/dl (14.0-18.0)
--- NOTE | 2020-03-04 18:15 | NUR ---
Problems reprioritized. Patient report given, questions answered & plan of care reviewed with JUANI Baugh.
[2020-03-04 19:16] LABS: BASOPHILS % (AUTO) 0.1 % (0-1); EOSINOPHILS % (AUTO) 0.1 % (0-6); HEMATOCRIT 30.3 % (42.0-52.0); HEMOGLOBIN 10.4 g/dl (14.0-17.9); LYMPHOCYTES # (AUTO) 0.3 X10'3 (1.1-4.8); LYMPHOCYTES % (AUTO) 2.9 % (21-51); MEAN CORPUSCULAR HEMOGLOBIN 30.8 PG (27.0-31.0); MEAN CORPUSCULAR HGB CONC 34.3 g/dL (33.0-36.5); MEAN CORPUSCULAR VOLUME 89.8 FL (78-98); MEAN PLATELET VOLUME 8.9 FL (7.4-10.4); MONOCYTES # (AUTO) 0.2 X10'3 (0-0.9); MONOCYTES % (AUTO) 2.2 % (2-12); NEUTROPHILS # (AUTO) 9.8 X10'3 (1.8-7.7); NEUTROPHILS % (AUTO) 94.7 % (42-75); PLATELET COUNT 193 X10'3 (140-440); RED BLOOD COUNT 3.37 X10'6 (4.70-6.10); RED CELL DISTRIBUTION WIDTH 13.2 % (11.5-14.5); WHITE BLOOD COUNT 10.3 X10'3 (4.5-11.0)
[2020-03-04 19:29] LABS: ALBUMIN 3.1 G/DL (3.4-5.0); ANION GAP 9 (8-16); BLOOD UREA NITROGEN 15 MG/DL (7-18); BUN/CREATININE RATIO 16.3 (5.4-32.0); CHLORIDE 112 MMOL/L (99-107); CREATININE 0.92 MG/DL (0.60-1.10); GLUCOSE 126 MG/DL (70-104); MAGNESIUM 2.2 MG/DL (1.5-2.4); POTASSIUM 4.4 MMOL/L (3.5-5.1); SODIUM 145 MMOL/L (135-145); TOTAL CARBON DIOXIDE 23.6 MMOL/L (24-32); eGFR 83 ML/MIN
[2020-03-04] MEDS ORDERED: mupirocin 2% ointment 22GM NS SCH (20:00)
[2020-03-04] MEDS: sennosides/docusate sodium tablet PO SCH (20:00)
--- NOTE | 2020-03-04 20:44 | NUR ---
[id number] 1829: Patient in room ICU 2040. I have received report from Tatiana GLORIA and had the opportunity to ask questions and assume patient care. Patient awake and alert,on SPONT on ventilator, tolerating well. 1929: Extubated patient to 4LNC with RT without incident. Strong cough, able to manage secretions independently. 2043: Patient sleepy but tolerating NC. Patient alert but sleepy, spoke to briefly on phone. Will continue to monitor. Addendum: 03/04/20 at 2054 by Lupis Barton RN Amended: Links added.
[2020-03-04] MEDS: atorvastatin 10mg tablet PO SCH (21:00)
[2020-03-04] MEDS: vancomycin/NS 1 GM ADD-VANTAGE 250 ML IV SCH (22:04)
[2020-03-05] VITALS (24 sets, daily range): BP systolic 96–127; BP diastolic 45–60
[2020-03-05 02:41] LABS: BASOPHILS % (AUTO) 0.1 % (0-1); EOSINOPHILS % (AUTO) 0 % (0-6); HEMATOCRIT 30.5 % (42.0-52.0); HEMOGLOBIN 10.2 g/dl (14.0-17.9); LYMPHOCYTES # (AUTO) 0.6 X10'3 (1.1-4.8); LYMPHOCYTES % (AUTO) 3.8 % (21-51); MEAN CORPUSCULAR HEMOGLOBIN 29.9 PG (27.0-31.0); MEAN CORPUSCULAR HGB CONC 33.5 g/dL (33.0-36.5); MEAN CORPUSCULAR VOLUME 89.5 FL (78-98); MEAN PLATELET VOLUME 9.3 FL (7.4-10.4); MONOCYTES # (AUTO) 0.8 X10'3 (0-0.9); MONOCYTES % (AUTO) 5.3 % (2-12); NEUTROPHILS # (AUTO) 13.4 X10'3 (1.8-7.7); NEUTROPHILS % (AUTO) 90.8 % (42-75); PLATELET COUNT 190 X10'3 (140-440); RED BLOOD COUNT 3.41 X10'6 (4.70-6.10); RED CELL DISTRIBUTION WIDTH 13.5 % (11.5-14.5); WHITE BLOOD COUNT 14.8 X10'3 (4.5-11.0)
[2020-03-05 02:53] LABS: PARTIAL THROMBOPLASTIN TIME 26 SECONDS (22-32)
--- NOTE | 2020-03-05 02:54 | NUR ---
Titrating Levophed down as tolerated. Patient appears to be sleeping at this time.
[2020-03-05 02:59] LABS: ALANINE AMINOTRANSFERASE 37 U/L (12-78); ALBUMIN 3.2 G/DL (3.4-5.0); ALBUMIN/GLOBULIN RATIO 1.3 (1.1-1.5); ALKALINE PHOSPHATASE 42 IU/L (46-116); ANION GAP 7 (8-16); ASPARTATE AMINO TRANSFERASE 39 U/L (10-37); BILIRUBIN,TOTAL 0.4 MG/DL (0.1-1.0); BLOOD UREA NITROGEN 15 MG/DL (7-18); CALCIUM 8.2 MG/DL (8.5-10.1); CHLORIDE 111 MMOL/L (99-107); CREATININE 0.88 MG/DL (0.60-1.10); GLUCOSE 107 MG/DL (70-104); MAGNESIUM 2.1 MG/DL (1.5-2.4); PHOSPHORUS 3.1 MG/DL (2.3-4.5); POTASSIUM 4.6 MMOL/L (3.5-5.1); SODIUM 144 MMOL/L (135-145); TOTAL PROTEIN 5.7 G/DL (6.4-8.2); eGFR 87 ML/MIN
[2020-03-05] MEDS: magnesium 2GM in 50ml NS 50 ML IV PRN (03:25)
[2020-03-05] MEDS: HYDROcodone/acetaminophen 10/325mg tab PO PRN ×5 (04:03→23:55)
--- NOTE | 2020-03-05 05:50 | NUR ---
Dangled patient at side of the bed. Patient nauseated briefly with small amount of emesis. Able to stand at side of the bed for a few minutes. Returned to bed without incident.
--- NOTE | 2020-03-05 06:12 | NUR ---
Problems reprioritized. Patient report given, questions answered & plan of care reviewed with Yo GLORIA.
[2020-03-05] MEDS: ceFAZolin/D5W- 1GM premix 50 ML IV SCH ×3 (07:24→23:51)
[2020-03-05] MEDS: aspirin 325mg tablet, delayed-release (Ecotrin) PO SCH (07:26)
[2020-03-05] MEDS: gabapentin 300mg capsule PO SCH ×3 (07:26→21:07)
[2020-03-05] MEDS: metoprolol tartrate 12.5mg (1/2 tablet) PO SCH ×2 (07:26→21:08)
[2020-03-05] MEDS: sennosides/docusate sodium tablet PO SCH ×2 (07:27→21:07)
[2020-03-05] MEDS: vancomycin/NS 1 GM ADD-VANTAGE 250 ML IV SCH ×2 (07:27→21:09)
--- NOTE | 2020-03-05 07:45 | NUR ---
Okay to admin beta marily per Dr. Portillo with Levophed drip transfusing
[2020-03-05] MEDS: insulin Lispro (HumaLOG) vial - multi-dose SQ SCH ×3 (09:24→18:47)
--- NOTE | 2020-03-05 11:00 | NUR ---
Dr. Portillo aware of low urine output 20-30ml/h; no new orders at this time.
[2020-03-05] MEDS: mineral oil/petrolatum ophthal oint EACHEYE SCH ×2 (13:51→20:00)
--- NOTE | 2020-03-05 17:27 | NUR ---
Levophed turned down to .015mcg. Will continue to monitor Pt's BP's
[2020-03-05] MEDS: NORepinephrine 8mg/ 250ml NS 250 ML IV SCH (17:38)
--- NOTE | 2020-03-05 18:21 | NUR ---
Problems reprioritized. Patient report given, questions answered & plan of care reviewed with Derrick GLORIA.
[2020-03-05] MEDS: atorvastatin 10mg tablet PO SCH (21:07)
[2020-03-06] VITALS (12 sets, daily range): BP systolic 92–120; BP diastolic 53–68
[2020-03-06 05:43] LABS: BASOPHILS # (AUTO) 0.1 X10'3 (0-0.2); BASOPHILS % (AUTO) 0.5 % (0-1); EOSINOPHILS % (AUTO) 0.2 % (0-6); HEMATOCRIT 29.5 % (42.0-52.0); HEMOGLOBIN 9.7 g/dl (14.0-17.9); LYMPHOCYTES # (AUTO) 1.3 X10'3 (1.1-4.8); LYMPHOCYTES % (AUTO) 9.8 % (21-51); MEAN CORPUSCULAR HEMOGLOBIN 29.9 PG (27.0-31.0); MEAN CORPUSCULAR VOLUME 90.6 FL (78-98); MEAN PLATELET VOLUME 9.3 FL (7.4-10.4); MONOCYTES # (AUTO) 1.5 X10'3 (0-0.9); MONOCYTES % (AUTO) 11.4 % (2-12); NEUTROPHILS # (AUTO) 10.5 X10'3 (1.8-7.7); NEUTROPHILS % (AUTO) 78.1 % (42-75); PLATELET COUNT 187 X10'3 (140-440); RED BLOOD COUNT 3.25 X10'6 (4.70-6.10); RED CELL DISTRIBUTION WIDTH 13.9 % (11.5-14.5); WHITE BLOOD COUNT 13.5 X10'3 (4.5-11.0)
[2020-03-06 06:02] LABS: ALBUMIN 2.9 G/DL (3.4-5.0); ANION GAP 5 (8-16); BLOOD UREA NITROGEN 28 MG/DL (7-18); CHLORIDE 105 MMOL/L (99-107); GLUCOSE 218 MG/DL (70-104); MAGNESIUM 1.9 MG/DL (1.5-2.4); PHOSPHORUS 2.7 MG/DL (2.3-4.5); POTASSIUM 4.8 MMOL/L (3.5-5.1); SODIUM 138 MMOL/L (135-145); TOTAL CARBON DIOXIDE 27.8 MMOL/L (24-32); eGFR 75 ML/MIN
[2020-03-06] MEDS ORDERED: furosemide 40mg/4ml inj IV ONE (06:35)
[2020-03-06] MEDS: sennosides/docusate sodium tablet PO SCH ×2 (07:36→21:36)
[2020-03-06] MEDS: gabapentin 300mg capsule PO SCH (07:36)
[2020-03-06] MEDS: pantoprazole 40mg Tablet.DR PO SCH (07:36)
[2020-03-06] MEDS: aspirin 325mg tablet, delayed-release (Ecotrin) PO SCH (07:36)
[2020-03-06] MEDS: metoprolol tartrate 12.5mg (1/2 tablet) PO SCH ×2 (07:36→21:36)
[2020-03-06] MEDS: HYDROcodone/acetaminophen 10/325mg tab PO PRN ×2 (07:47→21:40)
[2020-03-06] MEDS ORDERED: magnesium 2GM in 50ml NS 50 ML IV PRN (08:30)
[2020-03-06] MEDS ORDERED: potassium Cl 20 mEq SR tablet PO PRN (08:30)
[2020-03-06] MEDS ORDERED: magnesium 4gm in 100ml NS 100 ML IV PRN (08:30)
[2020-03-06] MEDS ORDERED: potassium Cl 20mEq/100mL bag 100 ML IV PRN (08:30)
--- NOTE | 2020-03-06 09:07 | NUR ---
Problems reprioritized. Patient report given, questions answered & plan of care reviewed with Ila GLORIA. Pt to be transferred to [address] [place] [address].
--- NOTE | 2020-03-06 10:05 | NUR ---
Pt transferred to [facility] room 316 at 0950 in stable condition with belongings and chart via W/C on 2L N/C
[2020-03-06] MEDS ORDERED: MESSAGE TO PHARMACY PO ONE (13:05)
[2020-03-06] MEDS ORDERED: dextrose ORAL solution 15 GM/59 ML bottle PO PRN ×2 (13:05)
[2020-03-06] MEDS ORDERED: glucagon, human recombinant 1mg kit SUBCUT PRN (13:05)
[2020-03-06] MEDS ORDERED: dextrose 50%-water 50ml dispensing syringe IV PRN ×2 (13:05)
[2020-03-06] MEDS: insulin Lispro (HumaLOG) vial - multi-dose SQ SCH (13:12)
--- NOTE | 2020-03-06 15:42 | NUR ---
Reassessment: eating well, 75-100% average PO intake, began eating 100% past three meals. Met at bedside and given written post cardiac surgery education handout and written heart healthy education handout with verbal review. Pt verbalized understanding, provided with RD contact information if any additional questions. Rec: 1. advance diet as medically indicated to carb controlled/heart healthy 2. routine bowel care 3. wt per rx Addendum: 03/06/20 at [address] Amended: Links added.
--- NOTE | 2020-03-06 18:50 | NUR ---
Problems reprioritized. Patient report given, questions answered & plan of care reviewed with JUANI Ellis.
[2020-03-06] MEDS: potassium Cl 20 mEq SR tablet PO SCH (20:00)
[2020-03-06] MEDS: atorvastatin 10mg tablet PO SCH (21:36)
[2020-03-06] MEDS: magnesium Cl slow-release 64mg tablet PO SCH (21:36)
[2020-03-06] MEDS: insulin glargine (Lantus) pen - multi-dose SQ SCH (21:43)
[2020-03-07 06:00] VITALS: BP 110/59
--- NOTE | 2020-03-07 06:36 | NUR ---
Problems reprioritized. Patient report given, questions answered & plan of care reviewed with Santosh.
[2020-03-07 06:50] LABS: BASOPHILS % (AUTO) 0.4 % (0-1); EOSINOPHILS # (AUTO) 0.2 X10'3 (0-0.9); EOSINOPHILS % (AUTO) 1.8 % (0-6); HEMATOCRIT 27.9 % (42.0-52.0); HEMOGLOBIN 9.5 g/dl (14.0-17.9); LYMPHOCYTES # (AUTO) 1.4 X10'3 (1.1-4.8); LYMPHOCYTES % (AUTO) 13.9 % (21-51); MEAN CORPUSCULAR HEMOGLOBIN 30.4 PG (27.0-31.0); MEAN CORPUSCULAR HGB CONC 34.1 g/dL (33.0-36.5); MEAN CORPUSCULAR VOLUME 89.3 FL (78-98); MEAN PLATELET VOLUME 9.4 FL (7.4-10.4); MONOCYTES % (AUTO) 10.6 % (2-12); NEUTROPHILS # (AUTO) 7.3 X10'3 (1.8-7.7); NEUTROPHILS % (AUTO) 73.3 % (42-75); PLATELET COUNT 191 X10'3 (140-440); RED BLOOD COUNT 3.13 X10'6 (4.70-6.10); RED CELL DISTRIBUTION WIDTH 13.4 % (11.5-14.5); WHITE BLOOD COUNT 9.9 X10'3 (4.5-11.0)
[2020-03-07 07:14] LABS: ALBUMIN 2.6 G/DL (3.4-5.0); ANION GAP 5 (8-16); BLOOD UREA NITROGEN 20 MG/DL (7-18); BUN/CREATININE RATIO 24.4 (5.4-32.0); CALCIUM 8.1 MG/DL (8.5-10.1); CHLORIDE 103 MMOL/L (99-107); CREATININE 0.82 MG/DL (0.60-1.10); GLUCOSE 194 MG/DL (70-104); SODIUM 136 MMOL/L (135-145); TOTAL CARBON DIOXIDE 28.1 MMOL/L (24-32); eGFR > 90 ML/MIN
[2020-03-07 07:32] LABS: MAGNESIUM 1.7 MG/DL (1.5-2.4)
[2020-03-07] MEDS: magnesium Cl slow-release 64mg tablet PO SCH ×2 (08:18→20:39)
[2020-03-07] MEDS: pantoprazole 40mg Tablet.DR PO SCH (08:18)
[2020-03-07] MEDS: sennosides/docusate sodium tablet PO SCH ×2 (08:18→20:39)
[2020-03-07] MEDS: potassium Cl 20 mEq SR tablet PO SCH ×2 (08:18→20:36)
[2020-03-07] MEDS: metoprolol tartrate 12.5mg (1/2 tablet) PO SCH ×2 (08:18→20:38)
[2020-03-07] MEDS: aspirin 325mg tablet, delayed-release (Ecotrin) PO SCH (08:18)
[2020-03-07] MEDS: insulin Lispro (HumaLOG) vial - multi-dose SQ SCH ×3 (09:25→21:12)
[2020-03-07 11:00] VITALS: BP 92/47
[2020-03-07 15:00] VITALS: BP 104/56
[2020-03-07] MEDS: HYDROcodone/acetaminophen 10/325mg tab PO PRN (20:42)
[2020-03-07] MEDS ORDERED: atorvastatin 20mg tablet PO SCH (21:00)
[2020-03-07] MEDS: insulin glargine (Lantus) pen - multi-dose SQ SCH (21:11)
[2020-03-07 22:00] VITALS: BP 111/59
[2020-03-08 06:00] VITALS: BP 111/60
[2020-03-08 06:34] LABS: BASOPHILS % (AUTO) 0.4 % (0-1); EOSINOPHILS # (AUTO) 0.5 X10'3 (0-0.9); EOSINOPHILS % (AUTO) 5.7 % (0-6); HEMATOCRIT 28.8 % (42.0-52.0); HEMOGLOBIN 9.6 g/dl (14.0-17.9); LYMPHOCYTES # (AUTO) 1.4 X10'3 (1.1-4.8); LYMPHOCYTES % (AUTO) 15.7 % (21-51); MEAN CORPUSCULAR HEMOGLOBIN 29.8 PG (27.0-31.0); MEAN CORPUSCULAR HGB CONC 33.3 g/dL (33.0-36.5); MEAN CORPUSCULAR VOLUME 89.6 FL (78-98); MEAN PLATELET VOLUME 9.1 FL (7.4-10.4); MONOCYTES # (AUTO) 0.9 X10'3 (0-0.9); MONOCYTES % (AUTO) 10.8 % (2-12); NEUTROPHILS # (AUTO) 5.9 X10'3 (1.8-7.7); NEUTROPHILS % (AUTO) 67.4 % (42-75); PLATELET COUNT 236 X10'3 (140-440); RED BLOOD COUNT 3.21 X10'6 (4.70-6.10); RED CELL DISTRIBUTION WIDTH 13.3 % (11.5-14.5); WHITE BLOOD COUNT 8.7 X10'3 (4.5-11.0)
[2020-03-08 06:51] LABS: ALBUMIN 2.4 G/DL (3.4-5.0); ANION GAP 4 (8-16); BLOOD UREA NITROGEN 18 MG/DL (7-18); BUN/CREATININE RATIO 19.8 (5.4-32.0); CALCIUM 8.4 MG/DL (8.5-10.1); CHLORIDE 106 MMOL/L (99-107); CREATININE 0.91 MG/DL (0.60-1.10); GLUCOSE 173 MG/DL (70-104); POTASSIUM 4.4 MMOL/L (3.5-5.1); SODIUM 137 MMOL/L (135-145); TOTAL CARBON DIOXIDE 27.4 MMOL/L (24-32); eGFR 84 ML/MIN
[2020-03-08] MEDS ORDERED: metoprolol tartrate tablet PO (08:26)
[2020-03-08] MEDS ORDERED: SENN-166 PO (08:36)
[2020-03-08 09:42] VITALS: BP_SYST 111
[2020-03-08] MEDS: aspirin 325mg tablet, delayed-release (Ecotrin) PO SCH (09:42)
[2020-03-08] MEDS: metoprolol tartrate 12.5mg (1/2 tablet) PO SCH (09:42)
[2020-03-08] MEDS: potassium Cl 20 mEq SR tablet PO SCH (09:43)
[2020-03-08] MEDS: pantoprazole 40mg Tablet.DR PO SCH (09:43)
[2020-03-08] MEDS: sennosides/docusate sodium tablet PO SCH (09:43)
--- NOTE | 2020-03-08 11:23 | NUR ---
Patient discharged home. Discharge packet reviewed prior to signing and being sent home with patient. PIV was removed with cannula intact, tele monitoring d/c'd patient belongings gathered and sent home with patient. Patient was provided with f/u information including Dr. Portillo office phone number.New RX's were printed and given to patient attached to packet. Patient was wheeled down by staff and left via private vehicle with his .
== END 2020-03-08 11:17 | disposition home or self-care (01) | DRG 233 ==
LOC: ER 20:01 → ED HOLD 22:21 → PCU 3S 02-27 14:52 → MED 3N 02-29 12:25 → PCU 3S 03-01 06:35 → ICU 2S 03-04 09:18 → MED 3N 03-06 11:05
PROVIDERS: ADMIT Internal Medicine; ATTEND Thoracic Surgery (Cardiothoracic Vascular Surgery)
PROC: 4A023N7 Measurement of Cardiac Sampling and Pressure, Left Heart, Percutaneous Approach (ICD-10-PCS; principal; 2020-02-26)
PROC: B2111ZZ Fluoroscopy of Multiple Coronary Arteries using Low Osmolar Contrast (ICD-10-PCS; 2020-02-26)
PROC: 05HY33Z Insertion of Infusion Device into Upper Vein, Percutaneous Approach (ICD-10-PCS; 2020-02-26)
PROC: 3E0234Z Introduction of Serum, Toxoid and Vaccine into Muscle, Percutaneous Approach (ICD-10-PCS; 2020-02-28)
PROC: 3E02340 Introduction of Influenza Vaccine into Muscle, Percutaneous Approach (ICD-10-PCS; 2020-02-28)
PROC: 02100Z9 Bypass Coronary Artery, One Artery from Left Internal Mammary, Open Approach (ICD-10-PCS; 2020-03-04)
PROC: 021109W Bypass Coronary Artery, Two Arteries from Aorta with Autologous Venous Tissue, Open Approach (ICD-10-PCS; 2020-03-04)
PROC: 06BP4ZZ Excision of Right Saphenous Vein, Percutaneous Endoscopic Approach (ICD-10-PCS; 2020-03-04)
PROC: 5A1221Z Performance of Cardiac Output, Continuous (ICD-10-PCS; 2020-03-04)
PROC: B24BZZ4 Ultrasonography of Heart with Aorta, Transesophageal (ICD-10-PCS; 2020-03-04)
DX: I21.4 Non-ST elevation (NSTEMI) myocardial infarction (principal); I50.21 Acute systolic (congestive) heart failure; N17.9 Acute kidney failure, unspecified; I13.0 Hypertensive heart and chronic kidney disease with heart failure and stage 1 through stage 4 chronic kidney disease, or unspecified chronic kidney disease; E78.00 Pure hypercholesterolemia, unspecified; E11.22 Type 2 diabetes mellitus with diabetic chronic kidney disease; N18.9 Chronic kidney disease, unspecified; I25.5 Ischemic cardiomyopathy; I25.10 Atherosclerotic heart disease of native coronary artery without angina pectoris; E11.65 Type 2 diabetes mellitus with hyperglycemia; I95.9 Hypotension, unspecified; E86.0 Dehydration; E78.5 Hyperlipidemia, unspecified; I34.0 Nonrheumatic mitral (valve) insufficiency; M17.0 Bilateral primary osteoarthritis of knee
CPT/HCPCS: 0232T; 93306; 93312; 93325; 93458; 96374; 99285; Z7506; Z7508; 36415; 36600; 71045; 71046; 80048; 80053; 80061; 81003; 82330; 82435; 82803; 82947; 82948; 83036; 83605; 83735; 83880; 84100; 84132; 84295; 84484; 85018; 85025; 85347; 85384; 85610; 85730; 86885; 86900; 86901; 86920; 87070; 87081; 90732; 93005; 93308; 93880; 93931; 93970; 94002; 94010; 94760; 97110; 97116; 97161; 97530; 99152; A4618; A4620; A6258; A6402; A6449; A7000; A7048; C1713; C1751; C1769; C1894; C9113; G0378; J0690; J1100; J1265; J1644; J1815; J1940; J2001; J2060; J2150; J2250; J2270; J2370; J2405; J2440; J2704; J2720; J2930; J3010; J3370; J3475; J3480; J3490; J7030; J7040; J7050; J7120; P9045; P9047; Q2039; Q9967

== ENCOUNTER 2023-02-22 06:24 | Day surgery (SDC) | payer MEDICARE ==
[2023-02-15 15:22] LABS: BASOPHILS # (AUTO) 0.1 X10'3 (0-0.2); BASOPHILS % (AUTO) 0.8 % (0-1); EOSINOPHILS # (AUTO) 0.2 X10'3 (0-0.9); LYMPHOCYTES # (AUTO) 1.4 X10'3 (1.1-4.8); LYMPHOCYTES % (AUTO) 21.3 % (21-51); MEAN CORPUSCULAR HEMOGLOBIN 28.8 PG (27.0-31.0); MEAN CORPUSCULAR HGB CONC 32.6 g/dL (33.0-36.5); MEAN CORPUSCULAR VOLUME 88.4 FL (78-98); MEAN PLATELET VOLUME 9.6 FL (7.4-10.4); MONOCYTES # (AUTO) 0.7 X10'3 (0-0.9); MONOCYTES % (AUTO) 9.8 % (2-12); NEUTROPHILS # (AUTO) 4.3 X10'3 (1.8-7.7); NEUTROPHILS % (AUTO) 65.1 % (42-75); PRE OP HEMATOCRIT 42.3 % (42.0-52.0); PRE OP HEMOGLOBIN 13.8 g/dL (14.0-17.9); PRE OP PLATELET COUNT 275 X10'3 (140-440); PRE OP WHITE BLOOD COUNT 6.7 10'3 (4.8-10.8); RED BLOOD COUNT 4.78 X10'6 (4.70-6.10); RED CELL DISTRIBUTION WIDTH 14.5 % (11.5-14.5)
[2023-02-15 15:35] LABS: BILIRUBIN,URINE NEGATIVE (Neg); CLARITY,URINE CLEAR (Clear); COLOR,URINE YELLOW (Yellow); GLUCOSE, URINE >=1000 mg/dl (Neg); KETONES,URINE NEGATIVE (Neg); LEUKOCYTE ESTERASE ,URINE NEGATIVE (Neg); NITRITES, URINE NEGATIVE (Neg); OCCULT BLOOD,URINE NEGATIVE (Neg); PH,URINE 5.5 (4.8-8.0); PROTEIN,URINE NEGATIVE (Neg); UROBILINOGEN,URINE 0.2 E.U/dL (0.2-1.0)
[2023-02-15 15:42] LABS: UA COLLECTION TYPE CLN CATCH MIDSTREAM
[2023-02-15 15:44] LABS: MUCUS STRANDS FEW /LPF (Neg); SQUAMOUS EPITHELIAL CELL,UR FEW /LPF (FEW)
[2023-02-15 15:45] LABS: BACTERIA,URINE FEW /HPF (Neg); RBC,URINE 0-2 /HPF (0-2); WBC,URINE 0-4 /HPF (0-4)
[2023-02-15 15:47] LABS: CAL OXALATE CRYSTALS FEW /HPF (NEGATIVE)
[2023-02-15 15:51] LABS: ALBUMIN 3.5 G/DL (3.4-5.0); ALBUMIN/GLOBULIN RATIO 0.9 (1.1-1.5); ALKALINE PHOSPHATASE 88 IU/L (46-116); BLOOD UREA NITROGEN 32 MG/DL (7-18); BUN/CREATININE RATIO 25.4 (10.0-20.0); CALCIUM 8.9 MG/DL (8.5-10.1); CHLORIDE 105 MMOL/L (99-107); CREATININE 1.26 MG/DL (0.60-1.10); PRE OP ALT 22 U/L (30-65); PRE OP ANION GAP 7 (8-16); PRE OP AST 21 U/L (10-37); PRE OP BILIRUB, TOTAL 0.5 MG/DL (0.0-1.0); PRE OP GLUCOSE 140 MG/DL (70-104); PRE OP POTASSIUM 4.3 MMOL/L (3.4-5.1); PRE OP SODIUM 140 MMOL/L (135-145); TOTAL CARBON DIOXIDE 27.7 MMOL/L (24-32); TOTAL PROTEIN 7.3 G/DL (6.4-8.2); eGFR 57 ML/MIN
[2023-02-22] VITALS (9 sets, daily range): BP systolic 121–171; BP diastolic 55–83; PULSE 55–78; RESP 14–17; TEMP 97.2; O2SAT 93–99
[~2023-02-22] VITALS: Ht 177.8 cm; Wt 98.0 kg
[~2023-02-22 06:24] MED LIST changes: +ASPI-1265 PO; +ATOR40TA72 PO; +DOCUMENT DATE & TIME OF BETA-BLOCKER PO ONE; +EMPA25TA PO; +FENO145T38 PO; +INSU100I29 SQ; +LISI2.5T14 PO; +LORA10TA7 PO; +METF-438 PO; +METF500T PO; +METO-395 PO; +NOVLG SQ; +POTA99CA PO; +SEMA0.258 SQ; +VITAMINS; +cefazolin 2gm/D5W 100mL 100 ML IV ONE; +famotidine 20mg tablet PO ONE; -heparin 1,000 units/ml 10ml inj ONE; -papaverine 30 mg/ml 2ml inj. ONE; +ringers solution, lacted 1,000 ML IV SCH
[2023-02-22] MEDS ORDERED: ondansetron/PF 4mg/2ml inj ONE ×2 (08:08→11:11)
[2023-02-22] MEDS ORDERED: propofol inj 0 ML IV ONE (08:08)
[2023-02-22] MEDS ORDERED: LIDOcaine 2% (20mg/ml) 5ml vial ONE (08:08)
[2023-02-22] MEDS ORDERED: rocuronium 10mg/ml inj IV ONE ×2 (08:08→11:11)
[2023-02-22] MEDS ORDERED: BUPIVAcaine 2.5mg/ml inj 50ml vial (contains preservative) ONE (08:18)
[2023-02-22] MEDS ORDERED: dexamethasone sod phosphate 10mg/ml inj ONE (11:11)
[2023-02-22] MEDS ORDERED: sevoflurane 250ml liquid IH ONE (11:11)
[2023-02-22] MEDS ORDERED: propofol inj 20 ML IV ONE (11:11)
[2023-02-22] MEDS ORDERED: midazolam 1 mg/ML 2ml injection ONE (11:12)
[2023-02-22] MEDS ORDERED: fentaNYL /PF 50mcg/ml 5ml ampule ONE (11:12)
[2023-02-22] MEDS ORDERED: BUPIVAcaine 2.5mg/ml inj 50ml vial (contains preservative) SQ ONE (12:03)
[2023-02-22] MEDS ORDERED: morphine 4 MG/ML inj SYRINge IV PRN (12:05)
[2023-02-22] MEDS ORDERED: morphine 2 MG/ML inj. syringe IV PRN (12:05)
[2023-02-22] MEDS ORDERED: proCHLORperazine 10 MG/2 ml inj IV PRN (12:05)
[2023-02-22] MEDS ORDERED: ringers solution, lacted 1,000 ML IV SCH (12:05)
[2023-02-22] MEDS ORDERED: meperidine/PF 25mg/ml syringe IV PRN ×3 (12:05)
[2023-02-22] MEDS ORDERED: ondansetron/PF 4mg/2ml inj IV PRN (12:05)
[2023-02-22] MEDS ORDERED: glycopyrrolate 0.2mg/ml inj ONE (12:34)
[2023-02-22] MEDS ORDERED: neostigmine methylsulfate 1 MG/ML 10ml vial ONE (12:34)
[2023-02-22] MEDS ORDERED: acetaminophen 1,000mg/100ml IV 100 ML IV ONE (12:35)
== END 2023-02-22 13:55 | disposition home or self-care (01) ==
LOC: PAS 06:24
PROVIDERS: ATTEND Surgery
DX: K43.6 Other and unspecified ventral hernia with obstruction, without gangrene (principal); E11.9 Type 2 diabetes mellitus without complications; E66.9 Obesity, unspecified; Z68.32 Body mass index [BMI] 32.0-32.9, adult; I25.10 Atherosclerotic heart disease of native coronary artery without angina pectoris; I25.2 Old myocardial infarction; E78.5 Hyperlipidemia, unspecified; Z98.41 Cataract extraction status, right eye; Z79.4 Long term (current) use of insulin; Z79.899 Other long term (current) drug therapy; Z95.1 Presence of aortocoronary bypass graft; Z98.42 Cataract extraction status, left eye; Z90.49 Acquired absence of other specified parts of digestive tract
CPT/HCPCS: 36415; 49592; 80053; 81001; 82948; 85025; J0131; J0690; J1100; J2250; J2405; J2704; J2710; J3010; J3490; J7030; J7120; Z7506; Z7508; Z7512; A4215; A4618

== ENCOUNTER 2023-05-01 14:04 | Emergency (ER) | payer MEDICARE, OTHER ==
[~2023-05-01] VITALS: Ht 177.8 cm; Wt 97.7 kg
[~2023-05-01 14:04] MED LIST changes: -DOCUMENT DATE & TIME OF BETA-BLOCKER PO ONE; -cefazolin 2gm/D5W 100mL 100 ML IV ONE; -famotidine 20mg tablet PO ONE; -ringers solution, lacted 1,000 ML IV SCH
[2023-05-01 14:16] VITALS: BP 147/63; PULSE 67; RESP 18; TEMP 97.6; O2SAT 98
[2023-05-01] MEDS: LIDOcaine/epinephrine/tetracaine TOPICAL sol 3 ML syringe TOP ONE (16:13)
== END 2023-05-01 17:17 | disposition home or self-care (01) ==
LOC: ER 14:04
DX: S01.511A Laceration without foreign body of lip, initial encounter (principal); E78.00 Pure hypercholesterolemia, unspecified; I10 Essential (primary) hypertension; E11.9 Type 2 diabetes mellitus without complications; Z79.82 Long term (current) use of aspirin; Z79.899 Other long term (current) drug therapy; Z79.84 Long term (current) use of oral hypoglycemic drugs; W21.09XA Struck by other hit or thrown ball, initial encounter; Y93.89 Activity, other specified; Y92.89 Other specified places as the place of occurrence of the external cause; Y99.8 Other external cause status
CPT/HCPCS: 40650; 99284; A6258; J3490; A6449